=== PATIENT | female | born 1950 | race Caucasian/White ===

== ENCOUNTER → 2016-10-27 | Outpatient (CLI) | payer MEDICARE, BC ==
[~2016-10-27] MED LIST: B12 INJ.,1000 MCG/M SC; CHILDREN'S CHEW1 CT1 PO; CIPRO 500MG TA500 MG PO; FLEXERIL10 M1 PO; IRON324 MG PO; VICODIN 5/500 T1 TAB PO; VITAMIN B-100 N1 TAB PO; VITAMIN D35000 IU PO; ZOFRAN4 MG PO
--- NOTE | 2016-10-27 15:02 | RADIOLOGY REPORT PS360 ---
BONE DENSITOMETRY(HIP:LT SPINE HISTORY: POST MENOPAUSAL ORDERING PHYSICIAN: Baljinder Gonzalez MD PATIENT AGE: 66 years COMPARISON: None FINDINGS: The BMD measured at the left femoral neck is 0.955 g/cm squared with a T score of -0.6. This is considered normal according to the World Health Organization criteria. Fracture risk is low. Recommend follow-up exam October 2018. The mean bone density of the lumbar spine is 1.485 g percent meters squared with a T score of 2.5 which is normal. IMPRESSION: Normal bone density. Recommend follow-up exam october 2018
--- NOTE | 2016-10-31 20:55 | RADIOLOGY REPORT PS360 ---
DIG MAMM-SCREEN BREANNA W/CAD CAD Screening COMPARISON: Digital mammograms 11/24/2014 INDICATION: There is a history of breast cancer patient's cousin. Diagnosed before menopause and in the patient's aunt diagnosed after menopause TECHNIQUE: Standard CC and MLO images were obtained. R2 CAD reviewed. FINDINGS: The breasts are composed entirely of fat with minimal scattered fibroglandular densities in each breast. There is a stable tiny asymmetric density deep within the right breast. There is no new or suspicious lesion in either breast and there are no suspicious microcalcifications. IMPRESSION: Fatty type breast parenchyma with no suspicious lesion seen recommend yearly follow-up BI-RADS CATEGORY: 2_Benign RECOMMENDED FOLLOWUP: 12M 12 MONTH FOLLOW-UP (A letter has been sent to the patient regarding results of the study.)
== END ==
LOC: RAD 09:45
DX: Z78.0 Asymptomatic menopausal state (principal); Z13.820 Encounter for screening for osteoporosis; R92.8 Other abnormal and inconclusive findings on diagnostic imaging of breast; Z12.31 Encounter for screening mammogram for malignant neoplasm of breast
CPT/HCPCS: G0202